=== PATIENT | male | born 1975 | race Caucasian/White ===

== ENCOUNTER 2019-03-09 10:35 | Emergency (ER) | payer OTHER ==
[2019-03-09] MEDS ORDERED: Ondansetron 4 MG/2 ML SDV IVPUSH ONE (11:23)
[2019-03-09] MEDS ORDERED: Sodium Chloride 0.9% 1,000 ML IV ONE ×2 (11:23→13:01)
[2019-03-09] MEDS ORDERED: Sodium Chloride 0.9% 10 ML Syringe FLUSH PRN (11:23)
[2019-03-09] MEDS ORDERED: Dicyclomine 10 MG Cap PO ONE (11:23)
[2019-03-09] MEDS ORDERED: Loperamide 2 MG Cap PO ONE (11:24)
--- NOTE | 2019-03-09 11:32 | EDM.PDOC ---
ED HPI GENERAL MEDICAL PROBLEM - General Chief Complaint: Gastrointestinal Problem Stated Complaint: DIARRHEA,WEAK,CHILLS Time Seen by Provider: 03/09/19 11:02 Source of Information: Reports: Patient, Old Records (Visit from [facility] 03/07/19), RN Notes Reviewed History Limitations: Reports: No Limitations - History of Present Illness INITIAL COMMENTS - FREE TEXT/NARRATIVE: Patient is a 43-year-old male presents to the ED for the evaluation of abdominal cramping, diarrhea, fever and chills. Patient notes this is been present for around 1 week now he states that the symptoms started after he was traveling for work in [place], he states he ate multiple types of fish/ seafood. He states that on Saturday it started with a couple episodes of vomiting, but now it is evolved into severe abdominal cramping with diarrhea. He states that really anytime he moves, this stimulates the bowels to move, he has not had any incontinence however. He denies any sort of blood in the stool , and is not having any urinary issues. He states that he is feeling increasingly weak, he has some dizziness with standing and walking around as well. He has been trying to keep up with fluids, however he does not think he has been overly successful. Patient was seen at the walk-in clinic on Saturday , 03/07/2019, had some stool studies done, to include C-diff, stool culture, Shiga toxin, cryptosporidium and Giardia. These were all negative. He was however given a prescription for ciprofloxacin, he states however he did not fill it as the pharmacy was closed by the time he got done with his appointment. He has not been taking much for medications [id number]. Abdominal Pain Score (Numeric/FACES): 8 - Related Data Allergies Allergy/AdvReac Type Severity Reaction Status Date / Time No Known Allergies Allergy Verified 03/09/19 11:03 Home Meds: Home Meds Azithromycin 500 mg PO DAILY #3 tablet 03/09/19 [Rx] Dicyclomine [Bentyl] 20 mg PO TID PRN #15 tab 03/09/19 [Rx] Metoclopramide HCl [Reglan] 10 mg PO TID PRN #15 tablet 03/09/19 [Rx] Past Medical History - Past Health History Medical/Surgical History: Denies Medical/Surgical History ED ROS GENERAL - Review of Systems Review Of Systems: See Below Constitutional: Reports: Fever, Chills, Malaise (generalized), Decreased Appetite Respiratory: Denies: Shortness of Breath, Cough Cardiovascular: Denies: Chest Pain GI/Abdominal: Reports: Abdominal Pain (diffuse abd cramping), Diarrhea, Decreased Appetite, Nausea. Denies: Bloody Stool, Vomiting : Denies: Dysuria, Frequency, Urgency Neurological: Reports: Dizziness ED EXAM, GI/ABD - Physical Exam Exam: See Below Exam Limited By: No Limitations General Appearance: Alert, WD/WN, No Apparent Distress Eyes: Bilateral: Normal Appearance Throat/Mouth: Normal Inspection, Normal Lips, Normal Teeth, Normal Gums, Normal Oropharynx, Normal Voice, No Airway Compromise Head: Atraumatic, Normocephalic Neck: Normal Inspection Respiratory/Chest: No Respiratory Distress, Lungs Clear, Normal Breath Sounds, No Accessory Muscle Use, Chest Non-Tender Cardiovascular: Normal Peripheral Pulses, Regular Rate, Rhythm, No Murmur GI/Abdominal Exam: Soft, No Organomegaly, No Distention, Tender (generalized), Abnormal Bowel Sounds (hypoactive) Rectal (Males) Exam: Deferred Extremities: Normal Inspection, Normal Capillary Refill Neurological: Alert, Oriented, Normal Cognition, No Motor/Sensory Deficits Psychiatric: Normal Affect, Normal Mood Skin Exam: Warm, Dry, Intact, Normal Color, No Rash Course - Vital Signs Last Recorded V/S: Last Vital Signs Temp 99.4 F 03/09/19 10:59 Pulse 89 03/09/19 10:59 Resp 16 03/09/19 10:59 BP 125/82 03/09/19 10:59 Pulse Ox 100 03/09/19 10:59 - Orders/Labs/Meds Orders: Active Orders 24 hr Category Date Time Status Peripheral IV Care [RC] . DIRECTED Care 03/09/19 11:23 Ordered OVA & PARASITES BY IMMUNOASSAY [MREF] Stat Lab 03/09/19 11:53 Received Sodium Chloride 0.9% [Saline Flush] Med 03/09/19 11:23 Ordered 10 ml FLUSH ASDIRECTED PRN Peripheral IV Insertion Adult [OM.PC] Stat Oth 03/09/19 11:22 Ordered Medication Orders Sodium Chloride (Saline Flush) 10 ml FLUSH ASDIRECTED PRN PRN Reason: Keep Vein Open Last Admin: 03/09/19 11:51 Dose: 10 ml Labs: Laboratory Tests 03/09/19 03/09/19 Range/Units 11:36 11:36 WBC 11.65 H (4.23-9.07) K/mm3 RBC 4.98 (4.63-6.08) M/mm3 Hgb 14.3 (13.7-17.5) gm/dl Hct 42.3 (40.1-51.0) % MCV 84.9 (79.0-92.2) fl MCH 28.7 (25.7-32.2) pg MCHC 33.8 (32.2-35.5) g/dl RDW Std Deviation 40.2 (35.1-43.9) fL Plt Count 321 (163-337) K/mm3 MPV 8.4 L (9.4-12.3) fl Neutrophils % (Manual) 80 H (40-60) % Band Neutrophils % 0 (0-10) % Lymphocytes % (Manual) 8 L (20-40) % Atypical Lymphs % 0 % Monocytes % (Manual) 11 H (2-10) % Eosinophils % (Manual) 1 (0.8-7.0) % Basophils % (Manual) 0 L (0.2-1.2) Platelet Estimate Adequate RBC Morph Comment Normal Sodium 140 (136-145) mEq/L Potassium 3.5 (3.5-5.1) mEq/L Chloride 102 (98-107) mEq/L Carbon Dioxide 28 (21-32) mEq/L Anion Gap 13.5 (5-15) BUN 12 (7-18) mg/dL Creatinine 1.4 H (0.7-1.3) mg/dL Est Cr Clr Drug Dosing 66.50 mL/min Estimated GFR (MDRD) 56 (>60) mL/min BUN/Creatinine Ratio 8.6 L (14-18) Glucose 77 (74-106) mg/dL Calcium 8.8 (8.5-10.1) mg/dL Total Bilirubin 0.6 (0.2-1.0) mg/dL AST 13 L (15-37) U/L ALT 30 (16-63) U/L Alkaline Phosphatase 53 (46-116) U/L Total Protein 7.9 (6.4-8.2) g/dl Albumin 3.7 (3.4-5.0) g/dl Globulin 4.2 gm/dL Albumin/Globulin Ratio 0.9 L (1-2) Meds: Medications Generic Name Dose Route Start Last Admin Trade Name Flaco PRN Reason Stop Dose Admin Sodium Chloride 10 ml 03/09/19 11:23 03/09/19 11:51 Saline Flush FLUSH 10 ml ASDIRECTED PRN Administration Keep Vein Open Discontinued Medications Generic Name Dose Route Start Last Admin Trade Name Flaco PRN Reason Stop Dose Admin Dicyclomine HCl 20 mg 03/09/19 11:23 03/09/19 11:50 Bentyl PO 03/09/19 11:24 20 mg ONETIME ONE Administration Sodium Chloride 1,000 mls @ 999 mls/hr 03/09/19 11:23 03/09/19 11:49 Normal Saline IV 03/09/19 12:23 999 mls/hr ONETIME ONE Administration Loperamide HCl 4 mg 03/09/19 11:24 03/09/19 11:50 Imodium PO 03/09/19 11:25 4 mg ONETIME ONE Administration Ondansetron HCl 4 mg 03/09/19 11:23 03/09/19 11:50 Zofran IVPUSH 03/09/19 11:24 4 mg ONETIME ONE Administration - Re-Assessments/Exams Free Text/Narrative Re-Assessment/Exam: 03/09/19 11:33 Patient presents to the ED for evaluation of diarrhea, abdominal cramping and fever. I was able to review his labs done at the clinic, he did not have any sort of blood work done he will get a CBC and CMP for initial evaluation, if he can provide us with a stool sample onto O&P, rotavirus, and white blood cell in the stool. He will get some IV fluids, 4 mg Zofran, 20 mg dicyclomine, and 4 mg Imodium for symptom relief. No imaging will be done at this time, this was an informed decision made by me and the patient. 03/09/19 13:00 Patient's labs have been resulted, white blood cell count is mildly elevated at 11,000, 80% neutrophils and no bands. Metabolic panel looks okay, however the patient due to his history will be given another liter of fluids, stool studies have been obtained, he was negative for the rotavirus, does have many white blood cells, and is negative for influenza at this time. will likely treat the patient for traveler's diarrhea, and have him take some dicyclomine and loperamide for symptomatic relief. He will be given 1000 mg of a azithromycin here, and 500 mg tablets to be taken daily for the next 3 days for further management. Departure - Departure Time of Disposition: 13:12 Disposition: Home, Self-Care 01 Condition: Fair Clinical Impression: Diarrhea Qualifiers: Diarrhea type: presumed infectious Qualified Code(s): R19.7 - Diarrhea, unspecified - Discharge Information *PRESCRIPTION DRUG MONITORING PROGRAM REVIEWED*: No *COPY OF PRESCRIPTION DRUG MONITORING REPORT IN PATIENT MADHAV: No Instructions: Diarrhea, Adult, [id number] Referrals: PCP,None [Primary Care Provider] - Forms: ED Department Discharge Additional Instructions: You have been evaluated in the ED for nausea/vomiting/diarrhea. Laboratory evaluation demonstrated quite a bit of white blood cells within your stools which would suggest an infection causing your diarrhea. You have been started on a azithromycin, and will be given a few tablets to take at home for the next 3 days as well. You were also given a prescription for some antinausea medication, and some medication for abdominal cramping. Please use as directed 1 tab 3 times daily as needed. You may try [id number] Imodium as directed on the bottle, please follow this for dosing instructions. You have received IV fluid in the ED to help with the dehydration from the vomiting and diarrhea. Over the next 24-48 hours please try to limit diet to clear liquids and advance as tolerate to a bland diet to alleviate symptoms of nausea/vomiting/diarrhea. Please return to the ED if your symptoms should change or worsen. Sepsis Event Note - Evaluation Sepsis Screening Result: No Definite Risk - Focused Exam Vital Signs: Vital Signs Temp Pulse Resp BP Pulse Ox 03/09/19 10:59 99.4 F 89 16 125/82 100 Date Exam was Performed: 03/09/19 Time Exam was Performed: 12:57 - My Orders Last 24 Hours: My Active Orders 03/09/19 11:22 Peripheral IV Insertion Adult [OM.PC] Stat 03/09/19 11:23 Peripheral IV Care [RC] . DIRECTED Sodium Chloride 0.9% [Saline Flush] 10 ml FLUSH ASDIRECTED PRN 03/09/19 11:53 OVA & PARASITES BY IMMUNOASSAY [MREF] Stat - Assessment/Plan Last 24 Hours: My Active Orders 03/09/19 11:22 Peripheral IV Insertion Adult [OM.PC] Stat 03/09/19 11:23 Peripheral IV Care [RC] . DIRECTED Sodium Chloride 0.9% [Saline Flush] 10 ml FLUSH ASDIRECTED PRN 03/09/19 11:53 OVA & PARASITES BY IMMUNOASSAY [MREF] Stat
[2019-03-09] MEDS ORDERED: Azithromycin 250 MG Tab PO ONE (13:02)
== END 2019-03-09 14:27 | disposition home or self-care (01) ==
LOC: JD.ED 10:35
DX: R19.7 Diarrhea, unspecified (principal)
CPT/HCPCS: 36415; 80053; 85007; 85027; 87328; 87329; 87425; 87804; 89055; 96361; 96374; 99284; A9270; J2405; J7030; 99283